=== PATIENT | female | born 1980 | race Caucasian/White ===

== ENCOUNTER 2018-11-30 15:40 | Emergency (ER) | payer SELFPAY ==
[2018-11-30 15:52] VITALS: BP 153/115
== END 2018-11-30 16:50 | disposition left against medical advice (07) ==
LOC: ER 15:40
DX: Z53.21 Procedure and treatment not carried out due to patient leaving prior to being seen by health care provider (principal)

== ENCOUNTER 2019-04-12 10:39 | Emergency (ER) | payer MEDICARE ==
--- NOTE | 2019-04-12 11:03 | ER Document Report ---
ED Medical Screen (RME) - General Chief Complaint: Abdominal Pain Stated Complaint: ABDOMINAL PAIN Time Seen by Provider: 04/12/19 10:57 Primary Care Provider: CHAYA MOORE [Primary Care Provider] - Follow up as needed TRAVEL OUTSIDE OF THE [place] IN LAST 30 DAYS: No - HPI Notes: 04/12/19 11:02 38-year-old female to the emergency department with complaints of lower abdominal cramping for the past 2 days. She states that she has not had a period for the past 2 months. She states that she had 2 home positive test. She is been sexually active and not using protection. She has never been before. She admits to extreme fatigue and occasionally some dizziness. She denies any vaginal bleeding. She denies any urinary complaints. Performed a medical screening exam on patient. I have gone ahead and ordered basic labs to include test and went ahead and ordered ultrasound as well. We will have patient await bed and further managed by main side provider - Related Data Allergies/Adverse Reactions: No Known Allergies Allergy (Verified 04/12/19 10:42) Physical Exam - Vital signs Vitals: Temp Pulse Resp BP Pulse Ox 97.8 F 71 16 157/88 H 100 04/12/19 10:57 04/12/19 10:57 04/12/19 10:57 04/12/19 10:57 04/12/19 10:57 Course - Vital Signs Vital signs: Temp Pulse Resp BP Pulse Ox 97.8 F 71 16 157/88 H 100 04/12/19 10:57 04/12/19 10:57 04/12/19 10:57 04/12/19 10:57 04/12/19 10:57 Doctor's Discharge - Discharge Referrals: CHAYA MOORE [Primary Care Provider] - Follow up as needed
[2019-04-12 11:47] LABS: ABSOLUTE BASOPHILS # (AUTO) 0.1 10^3/uL (0.0-0.2); ABSOLUTE EOSINOPHILS # (AUTO) 0.1 10^3/uL (0.0-0.6); ABSOLUTE LYMPHOCYTES (AUTO) 2.4 10^3/uL (0.5-4.7); ABSOLUTE MONOCYTES (AUTO) 0.6 10^3/uL (0.1-1.4); BASOPHILS % (AUTO) 0.8 % (0-2); EOSINOPHILS % (AUTO) 1.2 % (0-6); HEMATOCRIT 41.8 % (36.0-47.0); LYMPHOCYTES % (AUTO) 19.4 % (13-45); MEAN CORPUSCULAR HGB CONC 33.5 g/dL (32.0-36.0); MEAN CORPUSCULAR VOLUME 87 fl (80-97); MONOCYTES % (AUTO) 4.7 % (3-13); PLATELET COUNT 320 10^3/uL (150-450); RED BLOOD COUNT 4.82 10^6/uL (3.72-5.28); RED CELL DISTRIBUTION WIDTH 14.5 % (11.5-14.0); SEGMENTED NEUTROPHILS % (AUTO) 73.9 % (42-78); TOTAL CELLS COUNTED % (AUTO) 100 %; WHITE BLOOD COUNT 12.2 10^3/uL (4.0-10.5)
[2019-04-12 11:51] LABS: APPEARANCE,URINE CLEAR; BILIRUBIN,URINE NEGATIVE (NEGATIVE); COLOR,URINE STRAW; GLUCOSE, URINE NEGATIVE (NEGATIVE); KETONES,URINE NEGATIVE (NEGATIVE); LEUKOCYTE ESTERASE,URINE NEGATIVE (NEGATIVE); NITRITE,URINE NEGATIVE (NEGATIVE); PROTEIN,URINE NEGATIVE (NEGATIVE); URINE SPECIFIC GRAVITY 1.006; UROBILINOGEN,URINE NEGATIVE mg/dL (<2.0)
[2019-04-12 12:05] LABS: ALBUMIN 4.2 g/dL (3.5-5.0); ALKALINE PHOSPHATASE 60 U/L (38-126); ANION GAP 10 (5-19); ASPARTATE AMINO TRANSFERASE 15 U/L (14-36); BILIRUBIN,DIRECT 0.1 mg/dL (0.0-0.4); BILIRUBIN,TOTAL 0.2 mg/dL (0.2-1.3); BLOOD UREA NITROGEN 12 mg/dL (7-20); CALCIUM 9.3 mg/dL (8.4-10.2); CARBON DIOXIDE 22 mmol/L (22-30); CHLORIDE 104 mmol/L (98-107); GLUCOSE 92 mg/dL (75-110); POTASSIUM 4.2 mmol/L (3.6-5.0)
--- NOTE | 2019-04-12 12:51 | ER Document Report ---
ED General - General Chief Complaint: Abdominal Pain Stated Complaint: ABDOMINAL PAIN Time Seen by Provider: 04/12/19 10:57 Primary Care Provider: CHAYA MOORE [NO LOCAL MD] - Follow up as needed Mode of Arrival: Ambulatory Information source: Patient TRAVEL OUTSIDE OF THE [place] IN LAST 30 DAYS: No - HPI Notes: Patient planes of lower abdominal pain. It is crampy and bilateral. Nothing makes it better or worse. Does not radiate. She states she is concerned she may be . But no vaginal bleeding discharge. No pain when she urinates. No fevers. She states pain is mild to moderate. - Related Data Allergies/Adverse Reactions: No Known Allergies Allergy (Verified 04/12/19 10:42) Past Medical History - General Information source: Patient - Social History Smoking Status: Current Every Day Smoker Frequency of alcohol use: prior to positive at home HCG Drug Abuse: None, Marijuana Family History: Reviewed & Not Pertinent Patient has suicidal ideation: No Patient has homicidal ideation: No Past Surgical History: Reports: Hx Oral Surgery, Hx Tonsillectomy Review of Systems - Review of Systems Constitutional: denies: Chills, Fever Cardiovascular: denies: Chest pain, Palpitations Respiratory: denies: Cough, Short of breath -: Yes All other systems reviewed and negative Physical Exam - Vital signs Vitals: Temp Pulse Resp BP Pulse Ox 97.8 F 71 16 157/88 H 100 04/12/19 10:57 04/12/19 10:57 04/12/19 10:57 04/12/19 10:57 04/12/19 10:57 Interpretation: Hypertensive - General General appearance: Appears well, Alert - HEENT Head: Normocephalic, Atraumatic Eyes: Normal Pupils: PERRL - Respiratory Respiratory status: No respiratory distress Chest status: Nontender Breath sounds: Normal Chest palpation: Normal - Cardiovascular Rhythm: Regular Heart sounds: Normal auscultation Murmur: No - Abdominal Inspection: Normal Distension: No distension Bowel sounds: Normal Tenderness: Nontender Organomegaly: No organomegaly - Back Back: Normal, Nontender - Extremities General upper extremity: Normal inspection, Nontender, Normal color, Normal ROM, Normal temperature General lower extremity: Normal inspection, Nontender, Normal color, Normal ROM, Normal temperature, Normal weight bearing. No: Armida's sign - Neurological Neuro grossly intact: Yes Cognition: Normal Orientation: AAOx4 [place] Coma Scale Eye Opening: Spontaneous [place] Coma Scale Verbal: Oriented [place] Coma Scale Motor: Obeys Commands Darlene Coma Scale Total: 15 Speech: Normal Motor strength normal: LUE, RUE, LLE, RLE Sensory: Normal - Psychological Associated symptoms: Normal affect, Normal mood - Skin Skin Temperature: Warm Skin Moisture: Dry Skin Color: Normal Course - Re-evaluation Re-evalutation: 04/12/19 12:49 Ultrasound shows an intrauterine at 6 weeks. Laboratories otherwise unremarkable. Patient is stable for discharge follow-up with her ROVING MACHINE OPERATOR. - Vital Signs Vital signs: Temp Pulse Resp BP Pulse Ox 97.8 F 71 16 157/88 H 100 04/12/19 10:57 04/12/19 10:57 04/12/19 10:57 04/12/19 10:57 04/12/19 10:57 - Laboratory Result Diagrams: 04/12/19 11:35 04/12/19 11:35 Laboratory results interpreted by me: 04/12/19 04/12/19 04/12/19 11:35 11:35 11:35 WBC 12.2 H RDW 14.5 H Absolute Neuts (auto) 9.0 H Sodium 135.5 L Beta HCG, Quant 42088.00 H Urine Ascorbic Acid 20 H Urine HCG, Qual POSITIVE H - Diagnostic Test Radiology reviewed: Image reviewed, Reports reviewed Discharge - Discharge Clinical Impression: Abdominal pain affecting Condition: Stable Disposition: HOME, SELF-CARE Instructions: Abdominal Pain ([facility]) Additional Instructions: Please call your ROVING MACHINE OPERATOR provider as soon as possible to arrange follow-up Referrals: MARIETTA PATEL MD [ACTIVE STAFF] - Follow up in 3-5 days
[2019-04-12 13:11] VITALS: BP 147/90
--- NOTE | 2019-04-12 13:17 | RADIOLOGY REPORT (SQ) ---
EXAM DESCRIPTION: U/S [id number] TRNABD 1GES W/ODOP COMPLETED DATE/TIME: 04/12/2019 1:00 pm REASON FOR STUDY: lower abd pain, amenorrhea, positive home preg COMPARISON: None. TECHNIQUE: Static and realtime grayscale images acquired of the pelvis. Additional selected spectral and color Doppler images recorded. All images stored on PACs. bHCG: Not available. CLINICAL DATES: LMP 01/25/2019. 11 weeks 0 days LIMITATIONS: None. FINDINGS: FETUS: Single Living intrauterine . ULTRASOUND EGA: 6 weeks 6 days ULTRASOUND CASEY: 11/30/2019 EFW: Not applicable less than 20 weeks. CRL: 8.3 mm. FHR: 131 beats per minute. SURVEY: Too early to assess. AMNIOTIC FLUID: Adequate amount. PLACENTA: Not yet developed due to early gestation. SUBCHORIONIC BLEED: No SIZE OF BLEED: Not applicable. UTERUS: No masses. No anomalies. CERVICAL LENGTH: 2 cm. Closed. RIGHT ADNEXA: Ovary not seen. No adnexal free fluid. No adnexal masses. LEFT ADNEXA: Ovary not seen. No adnexal free fluid. No adnexal masses. FREE FLUID: None. OTHER: No other significant finding. IMPRESSION: LIVING INTRAUTERINE . EGA 6 weeks 6 days. Trimester of : First trimester - 0 to 13 weeks. TECHNICAL DOCUMENTATION: JOB ID: [id number] [employer]- All Rights Reserved Reading location - IP/workstation name: [email or web address]
== END 2019-04-12 13:11 | disposition home or self-care (01) ==
LOC: ER 10:39
DX: O26.891 Other specified pregnancy related conditions, first trimester (principal); R10.9 Unspecified abdominal pain; O99.331 Smoking (tobacco) complicating pregnancy, first trimester; Z3A.01 Less than 8 weeks gestation of pregnancy
CPT/HCPCS: 36415; 76801; 80053; 81001; 81025; 84702; 85025

== ENCOUNTER 2019-10-25 09:43 | Outpatient (CLI) | payer MEDICARE, MEDICAID ==
[2019-10-25 10:39] LABS: APPEARANCE,URINE CLOUDY; BILIRUBIN,URINE NEGATIVE (NEGATIVE); COLOR,URINE YELLOW; GLUCOSE, URINE NEGATIVE (NEGATIVE); KETONES,URINE NEGATIVE (NEGATIVE); LEUKOCYTE ESTERASE,URINE NEGATIVE (NEGATIVE); NITRITE,URINE NEGATIVE (NEGATIVE); PROTEIN,URINE NEGATIVE (NEGATIVE); URINE SPECIFIC GRAVITY 1.009; UROBILINOGEN,URINE NEGATIVE mg/dL (<2.0)
[2019-10-25 10:52] LABS: URINE AMPHETAMINES SCREEN NEGATIVE; URINE BARBITURATES SCREEN NEGATIVE; URINE BENZODIAZEPINES SCREEN NEGATIVE; URINE COCAINE SCREEN NEGATIVE; URINE METHADONE SCREEN NEGATIVE; URINE PHENCYCLIDINE SCREEN NEGATIVE
[2019-10-25 11:02] LABS: URINE MARIJUANA (THC) SCREEN UNCONFIRMED POSITIVE
[2019-10-25 11:09] LABS: UR PRO/CREAT RATIO RESULT 0.4 mg/mg (0.0-0.2); URINE CREATININE 50.1 mg/dL (16-327); URINE PROTEIN 20.8 mg/dL (<12)
[2019-10-25 11:31] LABS: ABSOLUTE BASOPHILS # (AUTO) 0.1 10^3/uL (0.0-0.2); ABSOLUTE EOSINOPHILS # (AUTO) 0.1 10^3/uL (0.0-0.6); ABSOLUTE LYMPHOCYTES (AUTO) 2.3 10^3/uL (0.5-4.7); ABSOLUTE MONOCYTES (AUTO) 0.6 10^3/uL (0.1-1.4); ABSOLUTE NEUT (AUTO) 11.8 10^3/uL (1.7-8.2); BASOPHILS % (AUTO) 0.4 % (0-2); EOSINOPHILS % (AUTO) 0.8 % (0-6); HEMATOCRIT 35.2 % (36.0-47.0); HEMOGLOBIN 11.8 g/dL (12.0-15.5); LYMPHOCYTES % (AUTO) 15.3 % (13-45); MEAN CORPUSCULAR HEMOGLOBIN 28.2 pg (27.0-33.4); MEAN CORPUSCULAR HGB CONC 33.4 g/dL (32.0-36.0); MEAN CORPUSCULAR VOLUME 84 fl (80-97); MONOCYTES % (AUTO) 4.3 % (3-13); PLATELET COUNT 311 10^3/uL (150-450); RED BLOOD COUNT 4.18 10^6/uL (3.72-5.28); RED CELL DISTRIBUTION WIDTH 16.2 % (11.5-14.0); SEGMENTED NEUTROPHILS % (AUTO) 79.2 % (42-78); TOTAL CELLS COUNTED % (AUTO) 100 %; WHITE BLOOD COUNT 14.9 10^3/uL (4.0-10.5)
[2019-10-25 11:52] LABS: ALBUMIN 3.3 g/dL (3.5-5.0); ALKALINE PHOSPHATASE 150 U/L (38-126); ANION GAP 6 (5-19); ASPARTATE AMINO TRANSFERASE 15 U/L (14-36); BILIRUBIN,TOTAL 0.2 mg/dL (0.2-1.3); BLOOD UREA NITROGEN 16 mg/dL (7-20); CARBON DIOXIDE 19 mmol/L (22-30); CHLORIDE 109 mmol/L (98-107); GLUCOSE 81 mg/dL (75-110); POTASSIUM 4.9 mmol/L (3.6-5.0); TOTAL PROTEIN 6.4 g/dL (6.3-8.2); URIC ACID 7.3 mg/dL (2.5-7.0)
[2019-10-25 12:03] LABS: CALCIUM 12.5 mg/dL (8.4-10.2)
--- NOTE | 2019-10-25 13:05 | Non Stress Test Report ---
Non Stress Test Datetime Report Generated by CPN: 10/25/2019 13:04 DEMOGRAPHIC EGA NST: 34.6 URINE RESULTS Urine Protein, NST: Negative Urine Ketones - NST: Positive Urine Glucose - NST: Negative MONITORING Monitor Explained: Monitor Explained; Test Explained; Patient Verbalized Understanding Time on Monitor: 10/25/2019 11:30 Time off Monitor: 10/25/2019 11:49 NST Duration: 19 NST INTERVENTIONS NST Interventions: PO Hydration Physician Notified NST: Cat Greer CNM BABY A: [id number] BABY A Movement : Present Contraction Frequency : denies FHR Baseline : 120 Accelerations : 15X15 Decelerations : None Variability : Moderate 6-25bpm NST Review: Meets Criteria for Reactive NST NST Review and Verified By : Pretty Mclaughlin RN NST Results: Reactive NST REPORT Report Trigger: Send Report
== END 2019-10-25 12:26 | disposition home or self-care (01) ==
LOC: LC 09:43
PROVIDERS: ATTEND Obstetrics & Gynecology
PROC: 4A1HXCZ Monitoring of Products of Conception, Cardiac Rate, External Approach (ICD-10-PCS; principal; 2019-10-25)
DX: O16.3 Unspecified maternal hypertension, third trimester (principal); O09.523 Supervision of elderly multigravida, third trimester; Z3A.34 34 weeks gestation of pregnancy
CPT/HCPCS: 59025; 36415; 83615; 84156; 84550; 82570; 85025; 80053; 81001; 80307; G0480 ×2; 80349

== ENCOUNTER 2019-11-14 20:12 | Inpatient (IN) | payer MEDICARE, MEDICAID ==
[2019-11-14] MEDS ORDERED: RINGERS SOLUTION,LACTATED 300 ML IV ONE (20:32)
[2019-11-14] MEDS ORDERED: DINOPROSTONE 10 MG VAGINAL INSERT.SR PV ONE (20:32)
[2019-11-14] MEDS ORDERED: ACETAMINOPHEN 325 MG TABLET PO PRN (20:32)
[2019-11-14] MEDS ORDERED: RINGERS SOLUTION,LACTATED 1,000 ML IV PRN (20:32)
[2019-11-14] MEDS ORDERED: MAG HYDROX/AL HYDROX/SIMETH SUSP 30 ML UDCUP PO PRN (20:32)
[2019-11-14] MEDS ORDERED: ZOLPIDEM TARTRATE 5 MG TABLET PO PRN (20:32)
[2019-11-14] MEDS ORDERED: OXYTOCIN/NORMAL SALINE 20 UNIT/1,000 ML RTUINJ IV PRN (20:32)
[2019-11-14 21:10] LABS: ABSOLUTE BASOPHILS # (AUTO) 0.1 10^3/uL (0.0-0.2); ABSOLUTE EOSINOPHILS # (AUTO) 0.1 10^3/uL (0.0-0.6); ABSOLUTE LYMPHOCYTES (AUTO) 2.3 10^3/uL (0.5-4.7); ABSOLUTE MONOCYTES (AUTO) 0.8 10^3/uL (0.1-1.4); ABSOLUTE NEUT (AUTO) 12.4 10^3/uL (1.7-8.2); BASOPHILS % (AUTO) 0.3 % (0-2); EOSINOPHILS % (AUTO) 0.5 % (0-6); HEMATOCRIT 33.2 % (36.0-47.0); HEMOGLOBIN 11.3 g/dL (12.0-15.5); LYMPHOCYTES % (AUTO) 14.6 % (13-45); MEAN CORPUSCULAR HEMOGLOBIN 28.6 pg (27.0-33.4); MEAN CORPUSCULAR HGB CONC 34.1 g/dL (32.0-36.0); MEAN CORPUSCULAR VOLUME 84 fl (80-97); PLATELET COUNT 291 10^3/uL (150-450); RED BLOOD COUNT 3.96 10^6/uL (3.72-5.28); RED CELL DISTRIBUTION WIDTH 16.8 % (11.5-14.0); SEGMENTED NEUTROPHILS % (AUTO) 79.6 % (42-78); TOTAL CELLS COUNTED % (AUTO) 100 %; WHITE BLOOD COUNT 15.6 10^3/uL (4.0-10.5)
[2019-11-14] MEDS ORDERED: DINOPROSTONE 10 MG VAGINAL INSERT.SR ONE (21:12)
[2019-11-14 21:24] LABS: APPEARANCE,URINE SLIGHTLY-CLOUDY; BILIRUBIN,URINE NEGATIVE (NEGATIVE); COLOR,URINE YELLOW; GLUCOSE, URINE NEGATIVE (NEGATIVE); KETONES,URINE NEGATIVE (NEGATIVE); LEUKOCYTE ESTERASE,URINE NEGATIVE (NEGATIVE); NITRITE,URINE NEGATIVE (NEGATIVE); PROTEIN,URINE 100 mg/dL (NEGATIVE); URINE SPECIFIC GRAVITY 1.017; UROBILINOGEN,URINE NEGATIVE mg/dL (<2.0)
[2019-11-14 21:46] LABS: URINE AMPHETAMINES SCREEN NEGATIVE; URINE BARBITURATES SCREEN NEGATIVE; URINE BENZODIAZEPINES SCREEN NEGATIVE; URINE COCAINE SCREEN NEGATIVE; URINE METHADONE SCREEN NEGATIVE; URINE PHENCYCLIDINE SCREEN NEGATIVE
[2019-11-14 22:02] LABS: URINE MARIJUANA (THC) SCREEN UNCONFIRMED POSITIVE
[2019-11-14] MEDS ORDERED: ZOLPIDEM TARTRATE 5 MG TABLET ONE (23:23)
--- NOTE | 2019-11-15 01:04 | Admission Physical ---
Datetime Report Generated by CPN: 11/15/2019 01:04 CURRENT ADMISSION Hx Assessment: The History has been Reviewed and is Current Chief Complaint: Signs/Symptoms Gestational HTN; Scheduled Induction of Labor Chief Complaint Other: 37 yo G1 at 37.5 wks EGA for IOL d/t gHTN at term with progressively worsening b/p. No severe range. PIH work up prior to scheduling induction was negative. Indication for Induction: Gestational HTN Admit Impression : Intact Membranes; Induction of Labor Admit Plan: Admit to Unit; Initiate Labor Induction Protocol ALLERGIES Medication Allergies: No Medication Allergies: No Known Allergies (11/14/2019) Latex: No Latex Allergies OBSTETRICAL HISTORY EDC: 11/30/2019 00:00 : 1 Para: 0 Term: 0 : 0 SAB: 0 IAB: 0 Ectopic: 0 Livin Cesareans: 0 VBACs: 0 Multiple Births: 0 Gestational Diabetes: No Rh Sensitization: No Incompetent Cervix: No MITZY: No Infertility: No ART Treatment: No Uterine Anomaly: No IUGR: No Hx Previous C/S: No Macrosomia: No Hx Loss/Stillborn: No PIH: No Hx : No Placenta Previa/Abruption: No Depression/PP Depression: No PTL/PROM: No Post Hemorrhage: No Current Procedures: Ultrasound; NST SEE RECORDS Alcohol: No Marijuana : Yes Last Used: 11/14/2019 00:00 Marijuana Comments: Pt states she smokes a blunt in the morning and at night to calm her down and help her sleep. Cocaine: No Other Illicit Drugs: No Cigarettes: Former Smoker. [id number] MEDICAL HISTORY Diabetes: No Blood Transfusion: No Pulmonary Disease (Asthma, TB): No Breast Disease: No Hypertension: Yes Floral Specialist Surgery: No Heart Disease: No Hosp/Surgery: No Autoimmune Disorder: No Anesthetic Complications: No Kidney Disease: No Abnormal Pap Smear: No Neuro/Epilepsy: No Psychiatric Disorders: No Other Medical Diseases: No Hepatitis/Liver Disease: No Significant Family History: No Varicosities/Phlebitis: No Trauma/Violence : No Thyroid Dysfunction: No Medical History Comments: Unsure if she had increased BPs before INFECTIOUS HISTORY Gonorrhea: No Genital Herpes: No Chlamydia: No Tuberculosis: No Syphilis: No Hepatitis: No HIV/AIDS Exposure: No Rash or Viral Illness: No HPV: No PHYSICAL EXAM General: Normal HEENT: Normal Neurologic: Normal Thyroid: Normal Heart: Normal Lungs: Normal Breast: Normal Back: Normal Abdomen: Normal Genitourinary Exam: Normal Extremities: Normal DTRs: Normal Pelvic Type: Adequate Vital Signs: Reviewed; Within Normal Limits VAGINAL EXAM Dilatation: 0 Effacement: 25 Station: -3 Contraction Comments: None MEMBRANES Membranes: Intact FETUS A EGA: 37.5 Monitoring: External US FHR- Baseline: 130 Variability: Moderate 6-25bpm Accelerations: 15X15 Decelerations: None FHR Category: Category I Presentation: Vertex Admit Comment: 37 yo G1 at 37.5 wks EGA for IOL d/t complicated by gHTN at term with near severe range pressures, AMA, obesity, mild anemia on Iron therapy, GERD -Admit to LDR -NPO and IVFs: LR at 125cc/hr -CEFM and [place] -O negative. S/p Rhogam at approx 29 wks -GBS positive: PCN IV -No PIH symptoms. B/p elevated but not severe. 24 hr urine was 136 on 10/27/2019. LDH was 102, Uric acid 6.3 , AST and ALT were normal as were platelets and creatinine at that time. PIH labs with admission -Cervidil as cervix is FT/th/high. Placed at 2115. Plan to leave for 12 hours. -Pain meds PRN -Plan for epidural with delivery per patient desire -Plan for . Consent obtained. Vertex PLANS FOR LABOR AND DELIVERY Labor and Delivery: Plan Pain Management: Epidural Feeding Preference: Breast Benefit of Breast Feed Discussed: Yes Circumcision: Yes INFORMED CONSENT Informed Consent Obtained: Vaginal Delivery; Section Delivery; Induction of Labor; Risks, Benefits and Alternatives Discussed Signature: with User ID: [email or web address] : with User ID: [email or web address]
[2019-11-15 02:28] LABS: URINE CREATININE 150.7 mg/dL (16-327); URINE PROTEIN 144.2 mg/dL (<12)
[2019-11-15 09:35] LABS: HEMATOCRIT 32.8 % (36.0-47.0); HEMOGLOBIN 11.4 g/dL (12.0-15.5); MEAN CORPUSCULAR HEMOGLOBIN 28.9 pg (27.0-33.4); MEAN CORPUSCULAR HGB CONC 34.7 g/dL (32.0-36.0); MEAN CORPUSCULAR VOLUME 84 fl (80-97); PLATELET COUNT 276 10^3/uL (150-450); RED BLOOD COUNT 3.94 10^6/uL (3.72-5.28); RED CELL DISTRIBUTION WIDTH 16.9 % (11.5-14.0); WHITE BLOOD COUNT 11.9 10^3/uL (4.0-10.5)
[2019-11-15 09:58] LABS: ALBUMIN 2.9 g/dL (3.5-5.0); ALKALINE PHOSPHATASE 163 U/L (38-126); ANION GAP 9 (5-19); ASPARTATE AMINO TRANSFERASE 15 U/L (14-36); BILIRUBIN,TOTAL 0.2 mg/dL (0.2-1.3); CALCIUM 9.5 mg/dL (8.4-10.2); CARBON DIOXIDE 15 mmol/L (22-30); CHLORIDE 109 mmol/L (98-107); GLUCOSE 148 mg/dL (75-110); POTASSIUM 4.8 mmol/L (3.6-5.0); TOTAL PROTEIN 5.9 g/dL (6.3-8.2); URIC ACID 7.7 mg/dL (2.5-7.0)
[2019-11-15 10:00] LABS: BLOOD UREA NITROGEN 14 mg/dL (7-20)
[2019-11-15] MEDS ORDERED: MISOPROSTOL 0.2 MG TABLET PV ONE (11:12)
[2019-11-15] MEDS ORDERED: MISOPROSTOL 0.2 MG TABLET PO ONE (11:12)
[2019-11-15] MEDS ORDERED: MISOPROSTOL 0.1 MG TABLET ONE ×2 (11:15→14:55)
--- NOTE | 2019-11-15 21:18 | PDOC PROGRESS REPORT ---
Subjective Progress Note for:: 11/15/19 Subjective:: in to discuss plan of care. Reason For Visit: IOL FOR GHTN Physical Exam - Physical Exam Vital Signs: Intake & Output 11/14/19 11/15/19 11/16/19 06:59 06:59 06:59 Weight 93.7 kg General appearance: PRESENT: no acute distress, well-developed, well-nourished Respiratory exam: PRESENT: clear to auscultation jack, symmetrical, unlabored Cardiovascular exam: PRESENT: RRR. ABSENT: diastolic murmur, rubs, systolic murmur GI/Abdominal exam: PRESENT: normal bowel sounds, soft. ABSENT: distended, guarding, mass, organolmegaly, rebound, tenderness Extremities exam: PRESENT: full ROM. ABSENT: calf tenderness, clubbing, pedal edema Neurological exam: PRESENT: alert, awake, oriented to person, oriented to place, oriented to time, oriented to situation, CN II-XII grossly intact. ABSENT: motor sensory deficit Psychiatric exam: PRESENT: appropriate affect, other - able to understand when each procedure is individual explained to them. Result Laboratory Results: 11/15/19 09:10 11/15/19 09:19 11/14/19 11/14/19 11/14/19 20:57 20:57 21:00 WBC 15.6 H RBC 3.96 Hgb 11.3 L Hct 33.2 L MCV 84 MCH 28.6 MCHC 34.1 RDW 16.8 H Plt Count 291 Seg Neutrophils % 79.6 H Sodium Potassium Chloride Carbon Dioxide Anion Gap BUN Creatinine Est GFR ( Amer) Glucose Uric Acid Calcium Total Bilirubin AST Alkaline Phosphatase Total Protein Albumin Urine Color YELLOW Urine Appearance SLIGHTLY-CLOUDY Urine pH 7.0 Ur Specific [place] 1.017 Urine Protein 100 H Urine Glucose (UA) NEGATIVE Urine Ketones NEGATIVE Urine Blood NEGATIVE Urine Nitrite NEGATIVE Ur Leukocyte Esterase NEGATIVE Blood Type O NEGATIVE Antibody Screen NEGATIVE 11/15/19 11/15/19 09:10 09:19 WBC 11.9 H RBC 3.94 Hgb 11.4 L Hct 32.8 L MCV 84 MCH 28.9 MCHC 34.7 RDW 16.9 H Plt Count 276 Seg Neutrophils % Sodium 132.6 L Potassium 4.8 Chloride 109 H Carbon Dioxide 15 L Anion Gap 9 BUN 14 Creatinine 0.75 Est GFR ( Amer) > 60 Glucose 148 H Uric Acid 7.7 H Calcium 9.5 Total Bilirubin 0.2 AST 15 Alkaline Phosphatase 163 H Total Protein 5.9 L Albumin 2.9 L Urine Color Urine Appearance Urine pH Ur Specific [place] Urine Protein Urine Glucose (UA) Urine Ketones Urine Blood Urine Nitrite Ur Leukocyte Esterase Blood Type Antibody Screen Assessment & Plan - Diagnosis (1) Bipolar 1 disorder Is this a current diagnosis for this admission?: Yes Plan: pt not on her bipolar meds. After discussion of plan of care. Suddenly FOB states that she is not competent to make decisions because of her bipolar. Reviewed with him and patient that without documentation that she is the decision maker. FOB (not ) stated that paperwork was started in [place] but not finished and no Competency hearing was performed in [place]. She and FOB reports that she would like to proceed with IOL and plan for epidural. Epidural and Spinal and General anesthesia were discussed with them and patient was able to explain the procedures back to me. (2) Encounter for induction of labor Is this a current diagnosis for this admission?: Yes Plan: reviewed plan. Cervidil performed last evening. She had cytotec 25mcg pv and 50 po then after 4 hours she had cytotec 50mcg po. Reviewed that would recommend cooks catheter and epidural or IV pain meds for pain control. She desires to proceed with ambulation for 1 hour then will proceed with pitocin and cooks catheter. (3) Gestational hypertension affecting first Is this a current diagnosis for this admission?: Yes - Time Time Spent with patient: 35 or more minutes Medications reviewed and adjusted accordingly: Yes Anticipated discharge: Home Within: within 72 hours - Inpatient Certification Based on my medical assessment, after consideration of the patient's comorbidities, presenting symptoms, or acuity I expect that the services needed warrant INPATIENT care.: Yes I certify that my determination is in accordance with my understanding of Medicare's requirements for reasonable and necessary INPATIENT services [42 CFR 412.3e].: Yes Medical Necessity: Need For IV Fluids, Need for Pain Control Post Hospital Care: D/C Criminal Justice Instructor Documentation
[2019-11-15] MEDS ORDERED: DEXTROSE 50%-WATER 25 GM/50 ML DISP.SYRIN IV PRN ×2 (22:29)
[2019-11-15] MEDS ORDERED: GLUCAGON,HUMAN RECOMB 1 MG INJ SUBCUT PRN (22:29)
[2019-11-15] MEDS ORDERED: DEXTROSE 40% GEL 15 GM TUBE PO PRN ×2 (22:29)
[2019-11-15] MEDS ORDERED: ZOLPIDEM TARTRATE 5 MG TABLET ONE (22:36)
[2019-11-16] MEDS ORDERED: ACETAMINOPHEN 325 MG TABLET PO ONE (03:01)
[2019-11-16] MEDS ORDERED: ACETAMINOPHEN 325 MG TABLET ONE (03:04)
[2019-11-16] MEDS ORDERED: CEFAZOLIN SODIUM 3 GM in DEXTROSE 5%-WATER 50 ML IV PRN (08:00)
[2019-11-16] MEDS ORDERED: ZOLPIDEM TARTRATE 5 MG TABLET PO SCH (22:00)
--- NOTE | 2019-11-24 10:19 | PDOC PROGRESS REPORT ---
Subjective Progress Note for:: 11/16/19 Subjective:: pt admitted for induction refused further allan Reason For Visit: IOL FOR GHTN Physical Exam - Physical Exam General appearance: PRESENT: no acute distress - Obstetrical Exam Vagina: normal Result Laboratory Results: 11/15/19 09:10 11/15/19 09:19 Assessment & Plan - Diagnosis (1) Bipolar 1 disorder Is this a current diagnosis for this admission?: Yes (2) Encounter for induction of labor Is this a current diagnosis for this admission?: Yes (3) Gestational hypertension affecting first Is this a current diagnosis for this admission?: Yes - Time Time Spent with patient: Less than 15 minutes Total Critical Time (Minutes): 0 Medications reviewed and adjusted accordingly: No - left AMA Anticipated discharge: Other Within: Other - Inpatient Certification Medical Necessity: Risk of Complication if Not Cared For in Hospital - Plan Summary Plan Summary: pt admitted for allan for ghtn and after two days she refused induction and left AMA
== END 2019-11-16 08:43 | disposition left against medical advice (07) | DRG 832 ==
LOC: LR 20:12
PROVIDERS: ADMIT Obstetrics & Gynecology; ATTEND Obstetrics & Gynecology
DX: O13.3 Gestational [pregnancy-induced] hypertension without significant proteinuria, third trimester (principal); O99.323 Drug use complicating pregnancy, third trimester; F12.90 Cannabis use, unspecified, uncomplicated; O99.613 Diseases of the digestive system complicating pregnancy, third trimester; K21.9 Gastro-esophageal reflux disease without esophagitis; O99.013 Anemia complicating pregnancy, third trimester; D64.9 Anemia, unspecified; O99.213 Obesity complicating pregnancy, third trimester; E66.9 Obesity, unspecified; Z87.891 Personal history of nicotine dependence; O99.343 Other mental disorders complicating pregnancy, third trimester; F31.9 Bipolar disorder, unspecified; Z3A.37 37 weeks gestation of pregnancy; O99.820 Streptococcus B carrier state complicating pregnancy
CPT/HCPCS: 36415; 80053; 80307; 81005; 82570; 83615; 84156; 84550; 85025; 85027; 86592; 86850; 86900; 86901; J3490

== ENCOUNTER 2019-11-30 08:43 | Inpatient (IN) | payer MEDICARE, MEDICAID ==
[2019-11-30] MEDS ORDERED: NORMAL SALINE 250 ML IV PRN (09:51)
[2019-11-30] MEDS ORDERED: CEFAZOLIN SODIUM 1 GM in DEXTROSE 5%-WATER 50 ML IV PRN (09:51)
[2019-11-30] MEDS ORDERED: CEFAZOLIN 1 GM/D5W RTU 1 GM/50 ML RTUPB IV PRN (10:06)
[2019-11-30 10:11] LABS: APPEARANCE,URINE SLIGHTLY-CLOUDY; BILIRUBIN,URINE NEGATIVE (NEGATIVE); COLOR,URINE YELLOW; GLUCOSE, URINE NEGATIVE (NEGATIVE); KETONES,URINE NEGATIVE (NEGATIVE); LEUKOCYTE ESTERASE,URINE NEGATIVE (NEGATIVE); NITRITE,URINE NEGATIVE (NEGATIVE); PROTEIN,URINE 100 mg/dL (NEGATIVE); URINE SPECIFIC GRAVITY 1.013; UROBILINOGEN,URINE NEGATIVE mg/dL (<2.0)
[2019-11-30] MEDS ORDERED: CEFAZOLIN 1 GM/D5W RTU 2 GM/100 ML RTUPB IV ONE (10:17)
[2019-11-30] MEDS ORDERED: CITRIC ACID/SODIUM CITRATE ORAL SOLN 15 ML UDCUP ONE (10:18)
[2019-11-30 10:23] LABS: URINE AMPHETAMINES SCREEN NEGATIVE; URINE BARBITURATES SCREEN NEGATIVE; URINE BENZODIAZEPINES SCREEN NEGATIVE; URINE COCAINE SCREEN NEGATIVE; URINE METHADONE SCREEN NEGATIVE; URINE PHENCYCLIDINE SCREEN NEGATIVE
[2019-11-30 10:25] LABS: ABSOLUTE BASOPHILS # (AUTO) 0.1 10^3/uL (0.0-0.2); ABSOLUTE EOSINOPHILS # (AUTO) 0.1 10^3/uL (0.0-0.6); ABSOLUTE LYMPHOCYTES (AUTO) 2.7 10^3/uL (0.5-4.7); ABSOLUTE MONOCYTES (AUTO) 0.8 10^3/uL (0.1-1.4); ABSOLUTE NEUT (AUTO) 11.4 10^3/uL (1.7-8.2); BASOPHILS % (AUTO) 0.4 % (0-2); EOSINOPHILS % (AUTO) 0.7 % (0-6); HEMATOCRIT 34.4 % (36.0-47.0); LYMPHOCYTES % (AUTO) 17.9 % (13-45); MEAN CORPUSCULAR HEMOGLOBIN 29.5 pg (27.0-33.4); MEAN CORPUSCULAR HGB CONC 34.8 g/dL (32.0-36.0); MEAN CORPUSCULAR VOLUME 85 fl (80-97); MONOCYTES % (AUTO) 5.2 % (3-13); PLATELET COUNT 258 10^3/uL (150-450); RED BLOOD COUNT 4.07 10^6/uL (3.72-5.28); RED CELL DISTRIBUTION WIDTH 18.1 % (11.5-14.0); SEGMENTED NEUTROPHILS % (AUTO) 75.8 % (42-78); TOTAL CELLS COUNTED % (AUTO) 100 %; WHITE BLOOD COUNT 15.1 10^3/uL (4.0-10.5)
[2019-11-30 10:28] LABS: URINE MARIJUANA (THC) SCREEN UNCONFIRMED POSITIVE
[2019-11-30 10:46] LABS: ALKALINE PHOSPHATASE 189 U/L (38-126); ANION GAP 5 (5-19); ASPARTATE AMINO TRANSFERASE 16 U/L (14-36); BILIRUBIN,TOTAL 0.3 mg/dL (0.2-1.3); BLOOD UREA NITROGEN 14 mg/dL (7-20); CALCIUM 9.1 mg/dL (8.4-10.2); CARBON DIOXIDE 18 mmol/L (22-30); CHLORIDE 109 mmol/L (98-107); GLUCOSE 79 mg/dL (75-110); POTASSIUM 4.9 mmol/L (3.6-5.0); TOTAL PROTEIN 6.1 g/dL (6.3-8.2); URIC ACID 7.3 mg/dL (2.5-7.0)
[2019-11-30] MEDS ORDERED: HYDRALAZINE HCL INJ/PF 20 MG/1 ML SDV ONE (10:46)
--- NOTE | 2019-11-30 10:48 | Admission Physical ---
Datetime Report Generated by CPN: 11/30/2019 10:48 CURRENT ADMISSION Hx Assessment: The History has been Reviewed and is Current Chief Complaint: Other Chief Complaint Other: 37 yo G1 at 37.5 wks EGA for IOL d/t gHTN at term with progressively worsening b/p. No severe range. PIH work up prior to scheduling induction was negative. Indication for Induction: Not Applicable Admit Impression : Term, Intrauterine ; Medical Complication Admit Plan: Initiate Section Protocol ALLERGIES Medication Allergies: No Medication Allergies: No Known Allergies (11/14/2019) Latex: No Latex Allergies OBSTETRICAL HISTORY EDC: 11/30/2019 00:00 : 1 Para: 0 Term: 0 : 0 SAB: 0 IAB: 0 Ectopic: 0 Livin Cesareans: 0 VBACs: 0 Multiple Births: 0 Gestational Diabetes: No Rh Sensitization: No Incompetent Cervix: No MITZY: No Infertility: No ART Treatment: No Uterine Anomaly: No IUGR: No Hx Previous C/S: No Macrosomia: No Hx Loss/Stillborn: No PIH: No Hx : No Placenta Previa/Abruption: No Depression/PP Depression: No PTL/PROM: No Post Hemorrhage: No Current Procedures: Ultrasound; NST SEE RECORDS Alcohol: No Marijuana : Yes Last Used: 11/14/2019 00:00 Marijuana Comments: Pt states she smokes a blunt in the morning and at night to calm her down and help her sleep. Cocaine: No Other Illicit Drugs: No Cigarettes: Former Smoker. 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 Heart Disease: No Hosp/Surgery: No Autoimmune Disorder: No Anesthetic Complications: No Kidney Disease: No Abnormal Pap Smear: No Neuro/Epilepsy: No Psychiatric Disorders: No Other Medical Diseases: No Hepatitis/Liver Disease: No Significant Family History: No Varicosities/Phlebitis: No Trauma/Violence : No Thyroid Dysfunction: No Medical History Comments: Unsure if she had increased BPs before INFECTIOUS HISTORY Gonorrhea: No Genital Herpes: No Chlamydia: No Tuberculosis: No Syphilis: No Hepatitis: No HIV/AIDS Exposure: No Rash or Viral Illness: No HPV: No PHYSICAL EXAM General: Normal HEENT: Normal Neurologic: Normal Thyroid: Normal Heart: Normal Lungs: Normal Breast: Deferred Back: Normal Abdomen: Normal Genitourinary Exam: Normal Extremities: Normal DTRs: Normal Pelvic Type: Adequate Vital Signs: Reviewed; Within Normal Limits VAGINAL EXAM Dilatation: ft Effacement: 50 Station: -2 Contraction Comments: 1.5-4 MEMBRANES Membranes: Intact FETUS A EGA: 37.6 Monitoring: External US FHR- Baseline: 130 Variability: Moderate 6-25bpm Accelerations: 15X15 Decelerations: None FHR Category: Category I Presentation: Vertex Admit Comment: un medicated bi-polar failed prior ALEX PLANS FOR LABOR AND DELIVERY Labor and Delivery: Plan Pain Management: Epidural Feeding Preference: Breast Benefit of Breast Feed Discussed: Yes Circumcision: Yes INFORMED CONSENT Informed Consent Obtained: Vaginal Delivery; Induction of Labor; Risks, Benefits and Alternatives Discussed Signature: with User ID: [email or web address]
[2019-11-30] MEDS ORDERED: EPHEDRINE SULFATE INJ 50 MG/1 ML AMPULE ONE (10:56)
[2019-11-30] MEDS ORDERED: FENTANYL CITRATE INJ/PF 100 MCG/2 ML AMPUL ONE ×2 (10:56→12:28)
[2019-11-30] MEDS ORDERED: MIDAZOLAM 2 MG/2 ML INJ ONE (10:56)
[2019-11-30] MEDS ORDERED: OXYTOCIN 10 UNIT/ML VIAL ONE (10:56)
[2019-11-30] MEDS ORDERED: KETOROLAC TROMETHAMINE INJ/PF 30 MG/1 ML SDV ONE (10:56)
[2019-11-30] MEDS ORDERED: ONDANSETRON HCL INJ/PF 4 MG/2 ML SDV ONE (10:57)
[2019-11-30] MEDS ORDERED: METHYLERGONOVINE MALEATE INJ/PF 0.2 MG/1 ML AMPULE ONE (10:57)
[2019-11-30] MEDS ORDERED: ACETAMINOPHEN 1,000 MG/100 ML RTUPB IV ONE (10:57)
[2019-11-30] MEDS ORDERED: OXYCODONE-ACETAMINOPHEN 5-325 MG TABLET PO PRN ×2 (11:40)
[2019-11-30] MEDS ORDERED: DIPHENHYDRAMINE HCL 50 MG/ML VIAL IV PRN (11:40)
[2019-11-30] MEDS ORDERED: PROMETHAZINE HCL INJ 25 MG/1 ML VIAL IV PRN ×3 (11:40→11:44)
[2019-11-30] MEDS ORDERED: ONDANSETRON HCL INJ/PF 4 MG/2 ML SDV IV PRN (11:40)
[2019-11-30] MEDS ORDERED: MEPERIDINE HCL/PF INJ 25 MG/1 ML DISP.SYRIN IV PRN (11:40)
[2019-11-30] MEDS ORDERED: FENTANYL CITRATE INJ/PF 100 MCG/2 ML AMPUL IV PRN ×2 (11:40)
[2019-11-30] MEDS ORDERED: MORPHINE SULFATE 10 MG/ML INJ IM PRN (11:44)
[2019-11-30] MEDS ORDERED: DIPH/PERTUSS(ACELL)/TETANUS VAC/PF 0.5 ML SYR (>=10YO) IM PRN (11:44)
[2019-11-30] MEDS ORDERED: ACETAMINOPHEN 1,000 MG/100 ML RTUPB IV PRN (11:44)
[2019-11-30] MEDS ORDERED: MEASLES,MUMPS&RUBELLA VACC/PF 0.5 ML VIAL SUBCUT PRN (11:44)
[2019-11-30] MEDS ORDERED: OXYTOCIN/NORMAL SALINE 20 UNIT/1,000 ML RTUINJ IV PRN (11:44)
[2019-11-30] MEDS ORDERED: SIMETHICONE 80 MG TAB.CHEW PO PRN (11:44)
--- NOTE | 2019-11-30 11:47 | Operative Report ---
Operative Report DATE OF SURGERY: 11/30/19 PREOPERATIVE DIAGNOSIS: IUP at term chronic hypertension failed induction unmed icated bipolar disorder POSTOPERATIVE DIAGNOSIS: Same OPERATION: Primary low transverse delivery of viable infant SURGEON: MATEO STINSON ANESTHESIA: Spinal TISSUE REMOVED OR ALTERED: Placenta COMPLICATIONS: None PROCEDURE: The patient was taken to the operating room where spinal anesthesia was obtained and found to be adequate. She was then prepped and draped in the normal sterile fashion and placed in the dorsal supine position with a leftward tilt. A Pfannenstiel skin incision was then made and carried through to the underlying layers of the fascia with the scalpel. The fascia was incised in the midline and the incision extended laterally with the Tracy scissors. The superior aspect of the fascial incision was then grasped with Baljit clamps elevated and the underlying rectus muscles dissected off bluntly. Attention was then turned to the inferior aspect of the fascial incision which in a similar fashion was grasped, tented up with Sheila clamps, and the rectus muscles dissected off bluntly. The rectus muscles were then in the midline and the peritoneum at the amount identified and entered bluntly. The peritoneal incision was then extended superiorly and inferiorly with good visualization of the bladder. [The bladder blade was inserted and the vesicouterine peritoneum identified grasped with Malian pickups and entered sharply with the Metzenbaum scissors. His incision was then extended laterally with the Metzenbaum scissors and a bladder flap created digitally. The bladder blade was then reinserted and the lower uterine segment incised in a transverse fashion with the scalpel. The uterine incision was then extended bluntly. The bladder blade was removed and the 's head was delivered from cephalic presentation atraumatically. The nose and mouth were suctioned and the cord doubly clamped and cut. And the infant was handed off to waiting pediatricians. The placenta was then delivered manully and the uterus exteriorized and cleared of all clots and debris. The uterine incision was then repaired with 1-0 Vicryl in a running locked fashion. A second layer of the same suture was used to obtain hemostasis via imbrication of the initial layer. The uterus was returned to the patient's abdomen. The gutters were cleared of all clots and debris. All operative sites were noted to be hemostatic. The fascia was reapproximated with 0 Vicryl in a running fashion from each lateral edge to the midline. The patient tolerated the procedure well. Sponge lap needle and instrument counts are correct -2. 2 g of Ancef were given prior to skin incis ion. The patient was taken to the recovery area awake and in stable condition.
--- NOTE | 2019-11-30 12:09 | Warning Signs in Babies ---
VOD Warning Signs Datetime Report Generated by [facility]: 11/30/2019 12:09 VOD#[id number] -Warning Signs in Babies: Needs to be viewed. (10/25/2019 11:09:Natalie Christian RN)
[2019-11-30] MEDS: FENTANYL CITRATE INJ/PF 100 MCG/2 ML AMPUL IV PRN ×2 (12:29→13:01)
[2019-11-30] MEDS: MORPHINE SULFATE 10 MG/ML INJ IV PRN ×2 (13:18→13:32)
[2019-11-30] MEDS ORDERED: MORPHINE SULFATE 10 MG/ML INJ ONE (13:18)
[2019-11-30] MEDS ORDERED: NIFEDIPINE 10 MG CAPSULE PO ONE (13:44)
[2019-11-30] MEDS ORDERED: NIFEDIPINE 10 MG CAPSULE ONE (13:46)
[2019-11-30] MEDS ORDERED: LABETALOL HCL 200 MG TABLET ONE (13:46)
[2019-11-30] MEDS: LABETALOL HCL 200 MG TABLET PO SCH ×2 (13:48→21:24)
[2019-11-30] MEDS ORDERED: OXYCODONE-ACETAMINOPHEN 5-325 MG TABLET ONE (13:55)
--- NOTE | 2019-11-30 15:07 | Non Stress Test Report ---
Non Stress Test Datetime Report Generated by CPN: 11/30/2019 15:07 DEMOGRAPHIC EGA NST: 40.0 EGA NST: 38.0 INDICATION Indication for Study (NST) Other: Provider Order Indication for Study (NST) Other: Provider Order MONITORING Monitor Explained: Monitor Explained; Test Explained; Patient Verbalized Understanding Monitor Explained: Monitor Explained; Test Explained; Patient Verbalized Understanding Time on Monitor: 11/30/2019 09:05 Time on Monitor: 11/16/2019 07:00 Time off Monitor: 11/30/2019 09:25 Time off Monitor: 11/16/2019 07:20 NST Duration: 20 NST Duration: 20 NST INTERVENTIONS NST Interventions: None NST Interventions: IV Fluids; Reposition Patient Physician Notified NST: Dr. An BABY A: [id number] BABY A Movement : Present Movement : Present Contraction Frequency : None Contraction Frequency : 4-7 FHR Baseline : 130 FHR Baseline : 125 Accelerations : 15X15 Accelerations : 15X15 Decelerations : None Decelerations : None Variability : Moderate 6-25bpm Variability : Moderate 6-25bpm NST Review: Meets Criteria for Reactive NST NST Review: Meets Criteria for Reactive NST NST Review and Verified By : Jm BENOITT Results: Reactive NST Results: Reactive NST REPORT Report Trigger: Send Report
--- NOTE | 2019-11-30 15:20 | Delivery Summary ---
Del Sum A-C Datetime Report Generated by CPN: 11/30/2019 15:20 DELIVERY PERSONNEL DELIVERY PERSONNEL: [id number] Delivery Doctor:: Gaston An MD Anesthesiologist:: Dr. Wood LABOR RELATIONS SUPERVISOR:: Uzma Aguilar CRNA Industrial Roofer:: Natalie Christian RN Nursery Nurse:: Racheal Cardenas RN Pre Owned Sales Manager/PRODUCT ENGINEERING MANAGER: Tayla Granados CST Pre Owned Sales Manager/PRODUCT ENGINEERING MANAGER: Kerri Fuller, CLOTH REELER MATERNAL INFORMATION Delivery Anesthesia: Spinal Medications After Delivery: Pitocin Bolus-Please Comment; Pitocin Drip 20 Units/1000ml NSS Meds After Delivery Comment: see anesthesia record Delivery QBL: 800 Maternal Complications: None LABOR SUMMARY EDC: 11/30/2019 00:00 No. Babies in Womb: 1 Attempted: No Labor Anesthesia: None LABOR INFORMATION Reason for Induction: Pre-Eclampsia Cervical Ripening Agents: Cytotec @ 50 Oxytocin: N/A Group B Beta Strep: positive Antibiotics # of Doses: 1 Name of Antibiotic Given: ancef Steroids Given: None Reason Steroids Not Administered: Not Applicable STAGES OF LABOR Stage 3 hr: 0 Stage 3 min: 1 VAGINAL DELIVERY Episiotomy: None Laceration #1: None Laceration Extension #1: N/A Laceration Repair: Not Applicable Sponge Count Correct: N/A Sharps Count Correct: N/A CSECTION DELIVERY Primary Indication: Failed Induction Secondary Indication: hypertension CSection Urgency: Scheduled CSection Incidence: Primary Labor: No Labor Elective: Elective CSection Incision: Lower Uterine Transverse BABY A INFORMATION Delivery Date/Time: 11/30/2019 11:24 Method of Delivery: Nurse Controlled Delivery: No Born in Route : No : N/A Forceps: N/A Vacuum Extraction: N/A Shoulder Dystocia : No PRESENTATION/POSITION BABY A Presentation: Cephalic Cephalic Presentation: Vertex Breech Presentation: N/A PLACENTA INFORMATION BABY A Placenta Delivery Time : 11/30/2019 11:25 Placenta Method of Delivery: Manual Removal Placenta Status: Delivered (Annotations: Data stored by [facility] on behalf of user) SCORES BABY A Heart Rate 1 min: >100 bpm Resp Effort 1 min: Good Cry Reflex Irritability 1 min: Cough or Sneeze or Pulls Away Muscle Tone 1 min: Active Motion Color 1 min: Blue/Pale SCORE 1 MIN: 8 Heart Rate 5 min: >100 bpm Resp Effort 5 min: Good Cry Reflex Irritability 5 min: Cough or Sneeze or Pulls Away Muscle Tone 5 min: Active Motion Color 5 min: Body [place], Extremities Blue SCORE 5 MIN: 9 INFANT INFORMATION BABY A Gestational Age at Delivery: 40.0 Gestational Status: Full Term- 39- 40.6 Weeks Infant Outcome : Liveborn Condition : Stable Sex: Male IDENTIFICATION BABY A Verification Date/Time: 11/30/2019 11:25 ID Band Number: [id number] Mother's Name Verified: Yes Infant RN Verifying Infant: JACINTO Cano Additional Verifying Personnel: TMartin,RN WEIGHT/LENGTH BABY A Birthweight (gm): 3345 Weight (lb): 7 Infant Weight (oz): 6 Length (in): 19.50 Length (cm): 49.53 CORD INFORMATION BABY A No. Cord Vessels: 3 Nuchal Cord : N/A (Annotations: Data stored by [facility] on behalf of user) Cord Blood Taken: Yes-For Eval (Mom's Blood Type - or O+) Infant Suction: None ASSESSMENT BABY A Infant Complications: None Physical Findings at Delivery: Within Normal Limits Skin to Skin: No Transferred To: Nursery BABY B INFORMATION : N/A SIGNATURES Signature: with User ID: [email or web address]
[2019-11-30] MEDS ORDERED: ACETAMINOPHEN 325 MG TABLET PO PRN (16:00)
[2019-11-30] MEDS: DOCUSATE SODIUM 100 MG CAPSULE PO SCH (18:38)
[2019-11-30] MEDS: KETOROLAC TROMETHAMINE INJ/PF 30 MG/1 ML SDV IV SCH (18:38)
[2019-11-30] MEDS: OXYCODONE-ACETAMINOPHEN 5-325 MG TABLET PO PRN (21:27)
--- NOTE | 2019-11-30 22:32 | PSYCHOLOGICAL NOTE ---
Psych Note - Psych Note Date seen by psych provider: 11/30/19 Time seen by psych provider: 15:22 Psych Note: Reason for Consult: unmedicated Bipolar/ability to care for child Consent Permissions: Significant other, Emory, at bedside per patient's request planner accompanied clinician for evaluation Patient is alert and orientated to person, place, time and circumstance. Mood is euthymic with congruent affect as evidenced by her smiling, laughing and engaging with clinician. Patient denies suicidal and homicidal ideation. Delusions are absent and behaviors congruent with an intact reality based presentation ie organized and linear thought process. Eye contact is well- maintained. Conversational speech is within normal rate, tone and prosody. Intellectual abilities appear to be within the average to low average range. Attention and concentration are good. Insight, judgment, impulse control are currently good. Diagnosis: Bipolar per history provided by patient Medication recommendations per [facility]'s contracted psychiatrist Dr. Natividad CULVER are as follows If patient decides NOT to breast-feed and would like to be started on medication Triliptal 300mg twice daily for 3 days then increase to 300mg three times daily If patient decides to continue with breast-feeding it is recommended to obtain an outpatient mental health provider Impression\plan:Patient is cleared from acute psychiatric services. Dr. Khan was consulted to care management of this patient; attending physicians in agreement with recommendations and disposition.
[2019-12-01] MEDS: KETOROLAC TROMETHAMINE INJ/PF 30 MG/1 ML SDV IV SCH (01:02)
[2019-12-01] MEDS: OXYCODONE-ACETAMINOPHEN 5-325 MG TABLET PO PRN ×4 (04:22→20:16)
[2019-12-01] MEDS: LABETALOL HCL 200 MG TABLET PO SCH ×3 (05:34→23:00)
[2019-12-01 06:04] LABS: HEMATOCRIT 29.2 % (36.0-47.0); MEAN CORPUSCULAR HEMOGLOBIN 29.8 pg (27.0-33.4); MEAN CORPUSCULAR HGB CONC 34.4 g/dL (32.0-36.0); MEAN CORPUSCULAR VOLUME 87 fl (80-97); PLATELET COUNT 215 10^3/uL (150-450); RED BLOOD COUNT 3.37 10^6/uL (3.72-5.28); RED CELL DISTRIBUTION WIDTH 18.4 % (11.5-14.0); WHITE BLOOD COUNT 14.2 10^3/uL (4.0-10.5)
[2019-12-01] MEDS: PRENATAL VITAMIN W DHA CAPSULE PO SCH (09:20)
[2019-12-01] MEDS: DOCUSATE SODIUM 100 MG CAPSULE PO SCH ×2 (09:20→17:15)
[2019-12-01] MEDS: IBUPROFEN 800 MG TABLET PO SCH ×3 (13:14→23:00)
--- NOTE | 2019-12-01 14:03 | PDOC PROGRESS REPORT ---
Subjective-OB Progress Note for:: 12/01/19 Subjective: reports bleeding slowing, pain controlled with current meds. denies needs. Physical Exam (OB) Vital Signs: Temp Pulse Resp BP Pulse Ox 97.6 F 79 18 128/64 H 100 12/01/19 11:09 12/01/19 11:09 12/01/19 11:09 12/01/19 11:09 12/01/19 11:09 Intake & Output 11/30/19 12/01/19 12/02/19 06:59 06:59 06:59 Intake Total 680 100 Output Total 1250 400 Balance -570 -300 Weight 95.4 kg - Dressing Removed: No Incision: Dressing, Well Approximated - Abdomen Description: Tender, Soft Hernia Present: No Fundal Description: Firm, Midline Fundal Height: u/u - u/2 - Abdominal Distension: No distension - Extremities Lower extremities: Armida's sign - neg Calf: Normal, Nontender Objective-Diagnostic Laboratory: 12/01/19 05:52 11/30/19 10:05 12/01/19 05:52 WBC 14.2 H RBC 3.37 L Hgb 10.0 L Hct 29.2 L MCV 87 MCH 29.8 MCHC 34.4 RDW 18.4 H Plt Count 215 Assessment and Plan(PN) - Time Spent with Patient Time with patient: Less than 15 minutes - Disposition Anticipated Discharge: Home Within: within 48 hours
[2019-12-02] MEDS: OXYCODONE-ACETAMINOPHEN 5-325 MG TABLET PO PRN ×4 (00:30→13:02)
[2019-12-02] MEDS: IBUPROFEN 800 MG TABLET PO SCH ×2 (05:58→12:39)
[2019-12-02] MEDS: LABETALOL HCL 200 MG TABLET PO SCH ×2 (06:00→13:02)
[2019-12-02] MEDS: PRENATAL VITAMIN W DHA CAPSULE PO SCH (09:19)
[2019-12-02] MEDS: DOCUSATE SODIUM 100 MG CAPSULE PO SCH (09:19)
--- NOTE | 2019-12-02 10:58 | PDOC DISCHARGE SUMMARY ---
Impression - Admit/DC Date/PCP Admission Date/Primary Care Provider: 11/30/19 09:17 DEVEN DOE MD Discharge Date: 12/02/19 - Discharge Diagnosis (1) Failed induction of labor Is this a current diagnosis for this admission?: Yes (2) Gestational hypertension Is this a current diagnosis for this admission?: Yes (3) S/P primary low transverse Is this a current diagnosis for this admission?: Yes (4) Bipolar 1 disorder Is this a current diagnosis for this admission?: Yes (5) Encounter for induction of labor Is this a current diagnosis for this admission?: Yes - Additional Information Discharge Diet: Regular Discharge Activity: Balance Activity w/Rest, No Lifting Over 10 Pounds, No Lifting/Push/Pulling, Pelvic Rest, No tub bath Referrals: DEVEN DOE MD [Primary Care Provider] - Prescriptions: Ibuprofen [Motrin 800 mg Tablet] 800 mg PO Q8HP PRN #90 tablet PRN Reason: Labetalol HCl [Normodyne 200 mg Tablet] 200 mg PO Q8 #90 tablet Oxycodone HCl/Acetaminophen [Percocet 5-325 mg Tablet] 1 tab PO Q4HP PRN #30 tablet PRN Reason: Vit/Dha [ Multi + Dha Capsule] 1 cap PO DAILY #90 capsule Home Medications: Ibuprofen [Motrin 800 mg Tablet] 800 mg PO Q8HP PRN #90 tablet 12/02/19 Labetalol HCl [Normodyne 200 mg Tablet] 200 mg PO Q8 #90 tablet 12/02/19 Oxycodone HCl/Acetaminophen [Percocet 5-325 mg Tablet] 1 tab PO Q4HP PRN #30 tablet 12/02/19 Vit/Dha [ Multi + Dha Capsule] 1 cap PO DAILY #90 capsule 12/02/19 Results Laboratory Results: WBC 14.2 10^3/uL (4.0-10.5) H 12/01/19 05:52 RBC 3.37 10^6/uL (3.72-5.28) L 12/01/19 05:52 Hgb 10.0 g/dL (12.0-15.5) L 12/01/19 05:52 Hct 29.2 % (36.0-47.0) L 12/01/19 05:52 MCV 87 fl (80-97) 12/01/19 05:52 MCH 29.8 pg (27.0-33.4) 12/01/19 05:52 MCHC 34.4 g/dL (32.0-36.0) 12/01/19 05:52 RDW 18.4 % (11.5-14.0) H 12/01/19 05:52 Plt Count 215 10^3/uL (150-450) 12/01/19 05:52 Lymph % (Auto) 17.9 % (13-45) 11/30/19 10:05 [place] % (Auto) 5.2 % (3-13) 11/30/19 10:05 Eos % (Auto) 0.7 % (0-6) 11/30/19 10:05 Baso % (Auto) 0.4 % (0-2) 11/30/19 10:05 Absolute Neuts (auto) 11.4 10^3/uL (1.7-8.2) H 11/30/19 10:05 Absolute Lymphs (auto) 2.7 10^3/uL (0.5-4.7) 11/30/19 10:05 Absolute Monos (auto) 0.8 10^3/uL (0.1-1.4) 11/30/19 10:05 Absolute Eos (auto) 0.1 10^3/uL (0.0-0.6) 11/30/19 10:05 Absolute Basos (auto) 0.1 10^3/uL (0.0-0.2) 11/30/19 10:05 Seg Neutrophils % 75.8 % (42-78) 11/30/19 10:05 Sodium 132.3 mmol/L (137-145) L 11/30/19 10:05 Potassium 4.9 mmol/L (3.6-5.0) 11/30/19 10:05 Chloride 109 mmol/L (98-107) H 11/30/19 10:05 Carbon Dioxide 18 mmol/L (22-30) L 11/30/19 10:05 Anion Gap 5 (5-19) 11/30/19 10:05 BUN 14 mg/dL (7-20) 11/30/19 10:05 Creatinine 0.69 mg/dL (0.52-1.25) 11/30/19 10:05 Est GFR ( Amer) > 60 (>60) 11/30/19 10:05 Est GFR (MDRD) Non-Af > 60 (>60) 11/30/19 10:05 Glucose 79 mg/dL (75-110) 11/30/19 10:05 Uric Acid 7.3 mg/dL (2.5-7.0) H 11/30/19 10:05 Calcium 9.1 mg/dL (8.4-10.2) 11/30/19 10:05 Total Bilirubin 0.3 mg/dL (0.2-1.3) 11/30/19 10:05 Direct Bilirubin 0.0 mg/dL (0.0-0.4) 11/30/19 10:05 Neonat Total Bilirubin Not Reportable 11/30/19 10:05 Neonat Direct Bilirubin Not Reportable 11/30/19 10:05 Neonat Indirect Bili Not Reportable 11/30/19 10:05 AST 16 U/L (14-36) 11/30/19 10:05 ALT 9 U/L (<35) 11/30/19 10:05 Alkaline Phosphatase 189 U/L (38-126) H 11/30/19 10:05 Lactate Dehydrogenase 132 U/L (120-246) 11/30/19 10:05 Total Protein 6.1 g/dL (6.3-8.2) L 11/30/19 10:05 Albumin 3.0 g/dL (3.5-5.0) L 11/30/19 10:05 Urine Color YELLOW 11/30/19 09:00 Urine Appearance SLIGHTLY-CLOUDY 11/30/19 09:00 Urine pH 8.0 (5.0-9.0) 11/30/19 09:00 Ur Specific [place] 1.013 11/30/19 09:00 Urine Protein 100 mg/dL (NEGATIVE) H 11/30/19 09:00 Urine Glucose (UA) NEGATIVE mg/dL (NEGATIVE) 11/30/19 09:00 Urine Ketones NEGATIVE mg/dL (NEGATIVE) 11/30/19 09:00 Urine Blood NEGATIVE (NEGATIVE) 11/30/19 09:00 Urine Nitrite NEGATIVE (NEGATIVE) 11/30/19 09:00 Urine Bilirubin NEGATIVE (NEGATIVE) 11/30/19 09:00 Urine Urobilinogen NEGATIVE mg/dL (<2.0) 11/30/19 09:00 Ur Leukocyte Esterase NEGATIVE (NEGATIVE) 11/30/19 09:00 Urine WBC (Auto) 3 /HPF 11/30/19 09:00 Urine RBC (Auto) 0 /HPF 11/30/19 09:00 Squamous Epi Cells Auto 8 /HPF 11/30/19 09:00 Urine Mucus (Auto) OCC /LPF 11/30/19 09:00 Urine Ascorbic Acid 20 (NEGATIVE) H 11/30/19 09:00 Urine Opiates Screen NEGATIVE 11/30/19 09:00 Urine Methadone Screen NEGATIVE 11/30/19 09:00 Ur Barbiturates Screen NEGATIVE 11/30/19 09:00 Ur Phencyclidine Scrn NEGATIVE 11/30/19 09:00 Ur Amphetamines Screen NEGATIVE 11/30/19 09:00 U Benzodiazepines Scrn NEGATIVE 11/30/19 09:00 Urine Cocaine Screen NEGATIVE 11/30/19 09:00 U Marijuana (THC) Screen UNCONFIRMED POSITIVE 11/30/19 09:00 Blood Type O NEGATIVE 11/30/19 10:05 Antibody Screen NEGATIVE 11/30/19 10:05 Crossmatch See Detail 11/30/19 10:05 Plan Plan of Treatment: follow up in one week at [facility] for incision and blood pressure check
[2019-12-02 12:12] VITALS: BP 137/87
== END 2019-12-02 14:45 | disposition home or self-care (01) | DRG 788 ==
LOC: LC 08:43 → LR 09:17 → 2S 14:54
PROVIDERS: ADMIT Obstetrics & Gynecology Gynecology; ATTEND Obstetrics & Gynecology Gynecology
PROC: 10D00Z1 Extraction of Products of Conception, Low, Open Approach (ICD-10-PCS; principal; 2019-11-30)
DX: O13.4 Gestational [pregnancy-induced] hypertension without significant proteinuria, complicating childbirth (principal); O99.324 Drug use complicating childbirth; F12.90 Cannabis use, unspecified, uncomplicated; O99.824 Streptococcus B carrier state complicating childbirth; F31.9 Bipolar disorder, unspecified; O99.344 Other mental disorders complicating childbirth; Z3A.37 37 weeks gestation of pregnancy; Z37.0 Single live birth
CPT/HCPCS: 1961; 36415; 59025; 80053; 80307; 80349; 81001; 83615; 84550; 85025; 85027; 86850; 86900; 86901; 86920; 94760; 94799; 99140; G0480; J0131; J0360; J0690; J1885; J2210; J2250; J2270; J2405; J2590; J3010; J3490